=== PATIENT | female | born 1955 | race Caucasian/White ===

== ENCOUNTER 2022-08-27 19:05 | Emergency (ER) | payer MEDICARE, BC ==
[~2022-08-27] VITALS: Ht 157.5 cm; Wt 81.6 kg
[2022-08-27] MEDS ORDERED: KETOROLAC 60 MG VIAL (30MG/ML) IM ONE ×2 (19:47→20:00)
[2022-08-27] MEDS ORDERED: TETANUS/DIPHTHERIA TOXOID [ADULT] 0.5 ML VIAL IM ONE (19:49)
[2022-08-27] MEDS ORDERED: TRAM-355 PO (20:37)
[2022-08-27 20:42] VITALS: BP 138/75
== END 2022-08-27 20:47 | disposition home or self-care (01) ==
LOC: EDH 19:05
DX: S62.102A Fracture of unspecified carpal bone, left wrist, initial encounter for closed fracture (principal); E11.9 Type 2 diabetes mellitus without complications; E78.00 Pure hypercholesterolemia, unspecified; W18.39XA Other fall on same level, initial encounter; Y93.89 Activity, other specified; Y92.89 Other specified places as the place of occurrence of the external cause; Y99.8 Other external cause status
CPT/HCPCS: 99284; 90714; 73110; 90471; 29125; 96372; J1885

== ENCOUNTER → 2023-01-29 | Outpatient (CLI) | payer MEDICARE ==
[~2023-01-29] MED LIST: TRAM-355 PO
[2023-01-29 12:31] LABS: ALBUMIN 4.2 g/dL (3.5-5.0); BILIRUBIN,TOTAL 0.5 mg/dL (0.2-1.0); CREATININE 0.8 mg/dL (0.5-1.5); POTASSIUM 4.4 mmol/L (3.5-5.1); TOTAL PROTEIN, SERUM 7.4 g/dL (6.0-8.3)
== END | disposition home or self-care (01) ==
LOC: LAB 09:05
PROVIDERS: ATTEND Student in an Organized Health Care Education/Training Program
DX: R07.9 Chest pain, unspecified (principal)
CPT/HCPCS: 36415; 80053; 80061

== ENCOUNTER → 2023-02-08 | Outpatient (CLI) | payer MEDICARE, BC ==
[~2023-02-08] MED LIST changes: +IOHEXOL 350 MG/ML 100ML INFUS..BTL IV ONE
== END | disposition home or self-care (01) ==
LOC: RAH 08:33
PROVIDERS: ATTEND Student in an Organized Health Care Education/Training Program
DX: R07.9 Chest pain, unspecified (principal); M47.815 Spondylosis without myelopathy or radiculopathy, thoracolumbar region
CPT/HCPCS: 75574; Q9967

== ENCOUNTER → 2023-02-24 | Outpatient (CLI) | payer MEDICARE, BC ==
[~2023-02-24] MED LIST changes: -IOHEXOL 350 MG/ML 100ML INFUS..BTL IV ONE
== END | disposition home or self-care (01) ==
LOC: SHCH 11:12
PROVIDERS: ATTEND Student in an Organized Health Care Education/Training Program
DX: R07.9 Chest pain, unspecified (principal)
CPT/HCPCS: 93306

== ENCOUNTER → 2023-07-31 | Outpatient (CLI) | payer MEDICARE, BC ==
[2023-07-31 12:29] LABS: BASOPHILS % (AUTO) 1.6 % (0.0-5.0); EOSINOPHILS # (AUTO) 0.45 K/uL (0.00-0.70); EOSINOPHILS % (AUTO) 7.4 % (0.0-8.0); HEMATOCRIT 40.7 % (36-48); IMMATURE GRANULOCYTE ABSOLUTE 0.01 K/uL (0-1); LYMPHOCYTES # (AUTO) 2.1 K/uL (1.0-4.8); LYMPHOCYTES % (AUTO) 34.2 % (21.0-51.0); MEAN CORPUSCULAR HEMOGLOBIN 29.7 pg (27.0-33.0); MEAN CORPUSCULAR HGB CONC 33.2 g/dL (32.0-36.0); MEAN CORPUSCULAR VOLUME 89.6 fL (79-99); MONOCYTES # (AUTO) 0.5 K/uL (0.1-1.0); MONOCYTES % (AUTO) 8.8 % (3.0-13.0); NEUTROPHILS # (AUTO) 2.9 K/uL (1.8-7.7); NEUTROPHILS % (AUTO) 47.8 % (40.0-77.0); PLATELET COUNT (AUTO) 269 K/uL (130-400); RED BLOOD CELL COUNT(AUTO) 4.54 MIL/uL (4.00-5.50); RED CELL DISTRIBUTION WIDTH 14.6 % (11.0-15.5); WHITE BLOOD COUNT (AUTO) 6.1 K/uL (4.8-10.8)
[2023-07-31 13:38] LABS: ALBUMIN 3.9 g/dL (3.5-5.0); BILIRUBIN,TOTAL 0.3 mg/dL (0.2-1.0); CREATININE 0.9 mg/dL (0.5-1.5); POTASSIUM 4.2 mmol/L (3.5-5.1); THYROID STIMULATING HORMONE 2.06 uIU/mL (0.36-3.74); TOTAL PROTEIN, SERUM 7.6 g/dL (6.0-8.3)
[2023-07-31 13:54] LABS: MAGNESIUM 2.4 mg/dL (1.80-2.40)
== END | disposition home or self-care (01) ==
LOC: LAB 08:24
PROVIDERS: ATTEND Student in an Organized Health Care Education/Training Program
DX: R07.9 Chest pain, unspecified (principal); R03.0 Elevated blood-pressure reading, without diagnosis of hypertension; E11.8 Type 2 diabetes mellitus with unspecified complications; Z79.899 Other long term (current) drug therapy
CPT/HCPCS: 36415; 80053; 80061; 82607; 83735; 84443; 85025